=== PATIENT | male | born 1960 | race Caucasian/White ===

== ENCOUNTER 2018-07-26 13:24 | Emergency (ER) | payer SELFPAY ==
[2018-07-26 13:35] VITALS: BP 141/88; PULSE 63; RESP 16; TEMP 36.6; O2SAT 95
--- NOTE | 2018-07-26 13:50 | W.ED.GENAD ---
Discharge Plan Disposition Patient Disposition: HOME Condition: Improving Discharge Details Chief Complaint: Laceration Clinical Impression: Hand laceration Primary Care Provider: Unknown,Unknown ED Provider: Ana Cristina Hyman Home Meds and New Rx's Prescriptions: No Action No Known Home Meds RF: 0 Discharge Instructions Instructions: Laceration (ED) Additional Instructions: Keep wound clean, dry, covered. Keep current dressing on for the next 24 hours. After that please change daily and monitor for signs of infection. the infection may be noted with redness, warmth, drainage, increased pain, fever/chills. If these or other new/worsening symptoms arise please seek care urgently once again. Sutures may be removed in 10 days, you may return here or have medic at work remove these. Discharge Data Discharge Date/Time-TO BE ENTERED AT DEPARTURE: 07/26/18 15:00 Medical Decision Making Patient is a [id number] 58-year-old male presenting today with chief complaint of laceration to the left thenar eminence while at work. Patient reports that he slipped and cut himself with a weigh box tender. Patient suffered a 3 cm laceration over the thenar eminence. Wound is into the subcutaneous tissue. Muscle is visualized but does not appear to be violated. Ligamentously intact. Does not appear to have an deep enough to puncture the bone. Sensation is intact to two-point discrimination testing. Ligamentous intact on exam. Patient is up-to-date on tetanus, was last completed last fall. Patient has discussed risk and benefit as well as procedural steps of suture closure. Patient voiced understanding and wished to proceed. Procedure note: Using standard sterile technique, 1% lidocaine was used to infiltrate the area. 6 cc was used. The sufficiently anesthetized the wound. to wound was then copiously irrigated with sterile saline and explored to base in a bloodless field. No foreign body or debris was noted. No ligamentous or bony injury was noted. Using simple interrupted stitches, #6 sutures were placed with 5-0 nylon. Patient tolerated procedure well and a dry sterile bandage splint placed. Patient and I discussed wound care. Discussed sxs of infection and when to seek care urgently once again. Advised suture removal in 10 days, patient will be away with the at this time but can seek out medical professional there. Discussed activities to avoid. All of his questions and concerns were addressed, he is in agreement wiht this plan. HPI General Mode of arrival: ambulatory. Date/Time Provider Initiated Documentation: 07/26/18 13:25. Limitations to Documentation: no limitations. Information obtained by: patient and RN notes reviewed. History of Present Illness 58 year old M presents to the emergency department with the chief complaint of laceration left hand, described as mild, Quality is described as aching, and is localized to the left and upper extremity. Patient reports no radiation. Patient started experiencing this minute(s) and it has been constant. Immobilization improves symptom(s), Movement worsens symptoms . Patient notes denies chest pain, cough, fever/chills, nausea/vomiting, rash and weakness. Patient did receive the following treatments prior to arrival, none Related Data Home Medications Medication Instructions Recorded Confirmed Unknown [No Known Home Meds] 07/26/18 07/26/18 Allergies Allergy/AdvReac Type Severity Reaction Status Date / Time No Known Allergies Allergy Unverified 07/26/18 13:39 General Stated Complaint: Laceration MONIE: 4 Review of Systems Constitutional Reports as per HPI, Denies chills, Denies fever(s), Denies headache(s) and Denies weakness ENT Denies headache(s) Cardiovascular Reports as per HPI Respiratory Reports as per HPI and Denies cough Musculoskeletal Reports as per HPI and Denies tingling Integumentary/Breasts Reports as per HPI, Denies rash and Reports wounds (laceration to left hand) Neurologic Reports as per HPI, Denies headache(s), Denies tingling, Denies paresthesias and Denies weakness [facility] Social History Smoking/Tobacco Use Status: Never Alcohol Intake: never Drug use: Never Substance use type: does not use Do you feel safe at home: Yes Do you feel safe in your relationship?: Yes Exam Const General: cooperative, healthy appearing, comfortable, no acute distress, well developed and well groomed Nutritional Appearance: average body habitus and well nourished Orientation: alert and awake Resp Effort & Inspection: normal respiratory effort, able to speak in complete sentences and no respiratory distress Cardio Rate: regular rate Rhythm: regular rhythm Skin Trauma: laceration (3cm laceration into subQ left thenar emmenance) Neuro General: alert and awake Cognition: normal cognition Speech: speech normal Gait: normal gait Motor: muscle tone normal throughout Sensory Exam: no sensory deficits noted Extrem Left upper extremity: full ROM, normal capillary refill, no joint enlargement and hand Details: normal capillary refill, neuromotor exam normal, neurosensory exam normal, tendon exam normal, tenderness, normal ROM of fingers and laceration; no unusual warmth and no swelling; abnormal to inspection (laceration) and no edema Psych Appearance: grossly normal and well kempt Mental Status: mental status grossly normal Speech and Movement: speech and movement normal Course Vital Signs Temperature 36.6 C 07/26/18 13:35 Pulse 63 07/26/18 13:35 Respiratory Rate 16 07/26/18 13:35 Blood Pressure 141/88 H 07/26/18 13:35 Pulse Oximetry 95 07/26/18 13:35 Temperature 36.6 C 07/26/18 13:35 Temperature Source Temporal Artery Scan 07/26/18 13:35 Pulse 63 07/26/18 13:35 Respiratory Rate 16 07/26/18 13:35 Respiratory Effort Non-Labored 07/26/18 13:38 Blood Pressure 141/88 H 07/26/18 13:35 Blood Pressure Position Sitting 07/26/18 13:35 Pulse Oximetry 95 07/26/18 13:35 Oxygen Delivery Method Room Air 07/26/18 13:35 Oxygen Flow Rate 0 07/26/18 13:35 Pain Level 5 07/26/18 13:35
--- NOTE | 2018-07-26 14:54 | ED.GENADUL_ITS ---
Discharge Plan Disposition Patient Disposition: HOME Condition: Improving Discharge Details Chief Complaint: Laceration Clinical Impression: Hand laceration Primary Care Provider: Unknown,Unknown ED Provider: Ana Cristina Hyman Home Meds and New Rx's Prescriptions: No Action No Known Home Meds RF: 0 Discharge Instructions Instructions: Laceration (ED) Additional Instructions: Keep wound clean, dry, covered. Keep current dressing on for the next 24 hours. After that please change daily and monitor for signs of infection. the infection may be noted with redness, warmth, drainage, increased pain, fever/chills. If these or other new/worsening symptoms arise please seek care urgently once again. Sutures may be removed in 10 days, you may return here or have medic at work remove these. Discharge Data Discharge Date/Time-TO BE ENTERED AT DEPARTURE: 07/26/18 15:00 Medical Decision Making Patient is a [id number] 58-year-old male presenting today with chief complaint of laceration to the left thenar eminence while at work. Patient reports that he slipped and cut himself with a box shook patcher. Patient suffered a 3 cm laceration over the thenar eminence. Wound is into the subcutaneous tissue. Muscle is visualized but does not appear to be violated. Ligamentously intact. Does not appear to have an deep enough to puncture the bone. Sensation is intact to two-point discrimination testing. Ligamentous intact on exam. Patient is up-to-date on tetanus, was last completed last fall. Patient has discussed risk and benefit as well as procedural steps of suture closure. Patient voiced understanding and wished to proceed. Procedure note: Using standard sterile technique, 1% lidocaine was used to infiltrate the area. 6 cc was used. The sufficiently anesthetized the wound. to wound was then copiously irrigated with sterile saline and explored to base in a bloodless field. No foreign body or debris was noted. No ligamentous or bony injury was noted. Using simple interrupted stitches, #6 sutures were placed with 5-0 nylon. Patient tolerated procedure well and a dry sterile bandage splint placed. Patient and I discussed wound care. Discussed sxs of infection and when to seek care urgently once again. Advised suture removal in 10 days, patient will be away with the at this time but can seek out medical professional there. Discussed activities to avoid. All of his questions and concerns were addressed, he is in agreement wiht this plan. HPI General Mode of arrival: ambulatory . Date/Time Provider Initiated Documentation: 07/26/18 13:25 . Limitations to Documentation: no limitations . Information obtained by: patient and RN notes reviewed . History of Present Illness 58 year old M presents to the emergency department with the chief complaint of laceration left hand, described as mild, Quality is described as aching, and is localized to the left and upper extremity. Patient reports no radiation. Patient started experiencing this minute(s) and it has been constant. Immobilization improves symptom(s), Movement worsens symptoms . Patient notes denies chest pain, cough, fever/chills, nausea/vomiting, rash and weakness. Patient did receive the following treatments prior to arrival, none Related Data Home Medications Medication Instructions Recorded Confirmed Unknown [No Known Home Meds] 07/26/18 07/26/18 Allergies Allergy/AdvReac Type Severity Reaction Status Date / Time No Known Allergies Allergy Unverified 07/26/18 13:39 General Stated Complaint: Laceration MONIE: 4 Review of Systems Constitutional Reports as per HPI, Denies chills, Denies fever(s), Denies headache(s) and Denies weakness ENT Denies headache(s) Cardiovascular Reports as per HPI Respiratory Reports as per HPI and Denies cough Musculoskeletal Reports as per HPI and Denies tingling Integumentary/Breasts Reports as per HPI, Denies rash and Reports wounds (laceration to left hand) Neurologic Reports as per HPI, Denies headache(s), Denies tingling, Denies paresthesias and Denies weakness [facility] Social History Smoking/Tobacco Use Status: Never Alcohol Intake: never Drug use: Never Substance use type: does not use Do you feel safe at home: Yes Do you feel safe in your relationship?: Yes Exam Const General: cooperative, healthy appearing, comfortable, no acute distress, well developed and well groomed Nutritional Appearance: average body habitus and well nourished Orientation: alert and awake Resp Effort & Inspection: normal respiratory effort, able to speak in complete sentences and no respiratory distress Cardio Rate: regular rate Rhythm: regular rhythm Skin Trauma: laceration (3cm laceration into subQ left thenar emmenance) Neuro General: alert and awake Cognition: normal cognition Speech: speech normal Gait: normal gait Motor: muscle tone normal throughout Sensory Exam: no sensory deficits noted Extrem Left upper extremity: full ROM, normal capillary refill, no joint enlargement and hand Details: normal capillary refill, neuromotor exam normal, neurosensory exam normal, tendon exam normal, tenderness, normal ROM of fingers and laceration; no unusual warmth and no swelling; abnormal to inspection (laceration) and no edema Psych Appearance: grossly normal and well kempt Mental Status: mental status grossly normal Speech and Movement: speech and movement normal Course Vital Signs Temperature 36.6 C 07/26/18 13:35 Pulse 63 07/26/18 13:35 Respiratory Rate 16 07/26/18 13:35 Blood Pressure 141/88 H 07/26/18 13:35 Pulse Oximetry 95 07/26/18 13:35 Temperature 36.6 C 07/26/18 13:35 Temperature Source Temporal Artery Scan 07/26/18 13:35 Pulse 63 07/26/18 13:35 Respiratory Rate 16 07/26/18 13:35 Respiratory Effort Non-Labored 07/26/18 13:38 Blood Pressure 141/88 H 07/26/18 13:35 Blood Pressure Position Sitting 07/26/18 13:35 Pulse Oximetry 95 07/26/18 13:35 Oxygen Delivery Method Room Air 07/26/18 13:35 Oxygen Flow Rate 0 07/26/18 13:35 Pain Level 5 07/26/18 13:35
== END 2018-07-26 15:00 | disposition home or self-care (01) ==
LOC: ER 15:10
PROVIDERS: Emergency Provider Physician Assistant
DX: S61.412A Laceration without foreign body of left hand, initial encounter (principal); W26.8XXA Contact with other sharp object(s), not elsewhere classified, initial encounter
CPT/HCPCS: 12002

== ENCOUNTER 2021-04-19 10:11 | Emergency (ER) | payer BC, SELFPAY ==
[2021-04-19 10:20] VITALS: BP 136/80; PULSE 65; RESP 15; TEMP 36.3; O2SAT 95
--- NOTE | 2021-04-19 11:10 | DI.RAD_ITS ---
Exam(s) XR PORTABLE CHEST AP EXAM: XR PORTABLE CHEST AP CLINICAL HISTORY: cough TECHNIQUE: 2D digital imaging was performed. COMPARISON: No exams were available for comparison FINDINGS: LUNGS: Low lung volumes. Mild basilar atelectasis. Infiltrates cannot be excluded. No consolidatio n. No pleural abnormality seen. HEART: Normal. MEDIASTINUM: Normal. BONES: Unremarkable. IMPRESSION: Limited exam due to poor pulmonary inflation. Basilar infiltrates are not excluded. DATA REPOSITORY: RADIATION DOSE DELIVERED:
--- NOTE | 2021-04-19 11:58 | ED.GENADUL_ITS ---
Discharge Plan Disposition Patient Disposition: HOME Condition: Stable Discharge Details Clinical Impression: Pneumonia Primary Care Provider: Unknown,Unknown ED Provider: Leonard Santiago Home Meds and New Rx's Prescriptions: New doxycycline hyclate 100 mg capsule 100 mg PO BID Qty: 20 RF: 0 Discharge Instructions Instructions: Pneumonia (ED) Additional Instructions: Chest x-ray is concerning for pneumonia, please take doxycycline as directed. [id number] medications as directed for symptomatic control. Your COVID test is pending and should result in the next 2-3 days, I recommend quarantining until your test has resulted negative. Please watch for new or worsening symptoms and return to the ER for any concerns. Lastly, please contact your primary care provider later today or tomorrow to discuss your ER visit, ongoing symptoms, need for outpatient reevaluation and I strongly recommend getting vaccinated for COVID Medical Decision Making 61-year-old male, not a smoker, not vaccinated for COVID, presents with 3-week history of intermittent cough, congestion, fever that is no longer present. Clinically he appears well, nontoxic, lungs are clear to auscultation but diminished at the bases, O2 sat 95% on room air. He does not require any supplemental oxygen concern for COVID, will obtain a send out swab and obtain chest x-ray as well. I do not believe that any emergent laboratory values will change the overall disposition as he appears well Chest x-ray cannot exclude bibasilar infiltrates. COVID swab pending. Given the duration of his symptoms I do believe treating with antibiotics is reasonable given his unclear x-ray. Medical Records Medical records reviewed: Yes I reviewed the patient's medical records. Imaging Data Radiologic Study: Attestation: I personally reviewed and interpreted this imaging study as follows: Imaging: X-Ray Radiologist's impression: Exam(s) XR PORTABLE CHEST AP EXAM: XR PORTABLE CHEST AP CLINICAL HISTORY: cough TECHNIQUE: 2D digital imaging was performed. COMPARISON: No exams were available for comparison FINDINGS: LUNGS: Low lung volumes. Mild basilar atelectasis. Infiltrates cannot be excluded. No consolidation. No pleural abnormality seen. HEART: Normal. MEDIASTINUM: Normal. BONES: Unremarkable. IMPRESSION: Limited exam due to poor pulmonary inflation. Basilar infiltrates are not excluded. HPI General Mode of arrival: ambulatory . Date/Time Provider Initiated Documentation: 04/19/21 10:15 . Limitations to Documentation: no limitations . Information obtained by: patient . History of Present Illness 61 year old M presents to the emergency department with the chief complaint of Cough, described as mild, with intensity rated at 3. Quality is described as other (Congestion), and is localized to the chest. Patient reports no radiation. Patient started experiencing this week(s) (3) and it has been constant. No relieving factors improve symptom(s), No exacerbating factors reported . Patient notes cough and fever/chills (3 weeks ago); denies chest pain, headaches and nausea/vomiting. Patient did receive the following treatments prior to arrival, none Related Data Home Medications Medication Instructions Recorded Confirmed doxycycline hyclate 100 mg PO BID #20 cap 04/19/21 Previous Rx's Medication Instructions Recorded doxycycline hyclate 100 mg PO BID #20 cap 04/19/21 Allergies Allergy/AdvReac Type Severity Reaction Status Date / Time No Known Allergies Allergy Unverified 04/19/21 10:25 General Stated Complaint: RespSymp MONIE: 3 Review of Systems Constitutional Constitutional: Reports fever(s) and Denies headache(s) ENT Ears, Nose, Mouth, and Throat: Denies headache(s) and Denies neck pain Cardiovascular Cardiovascular: Denies chest pain and Denies dyspnea Respiratory Respiratory: Reports cough and Denies dyspnea Gastrointestinal Gastrointestinal: Denies abdominal pain, Denies nausea and Denies vomiting Musculoskeletal Musculoskeletal: Denies myalgias and Denies neck pain Integumentary/Breasts Skin/Breast: Denies rash Neurologic Neurologic: Denies headache(s) PFSH All Active Problems (Updated 04/19/21 @ 12:04 by SAUL Daly) Pneumonia (Acute) Social History Smoking/Tobacco Use Status: Never Smoking risk assessment performed?: Yes Alcohol Intake: never Drug use: Never Substance use type: does not use Do you feel safe at home: Yes Do you feel safe in your relationship?: Yes Exam Const General: cooperative, healthy appearing, comfortable and no acute distress Orientation: alert, awake and oriented x3 HENMT Head: normal to inspection, normocephalic and atraumatic Throat: posterior oropharynx normal Eyes General: appearance normal, both eyes and all related structures Conjunctivae: conjunctivae normal Neck Neck: normal visual inspection, full ROM, no lymphadenopathy, no meningeal signs, trachea midline, supple and nontender Resp Effort & Inspection: normal respiratory effort and able to speak in complete sentences Auscultation: diminished lung sounds bilaterally in the lower lung miles Cardio Rate: regular rate Rhythm: regular rhythm GI Palpation: soft and nontender Skin General skin exam: no rashes or lesions noted Neuro General: patient alert, patient awake, moves all extremities and no focal motor deficits Sensory Exam: no sensory deficits noted Psych Appearance: grossly normal Mental Status: mental status grossly normal Course Vital Signs Vital signs: Vital Signs Temperature 36.3 C L 04/19/21 10:20 Pulse 65 04/19/21 10:20 Respiratory Rate 15 04/19/21 10:20 Blood Pressure 136/80 04/19/21 10:20 Pulse Oximetry 95 04/19/21 10:20 Temperature 36.3 C L 04/19/21 10:20 Temperature Source Temporal Artery Scan 04/19/21 10:20 Pulse 65 04/19/21 10:20 Respiratory Rate 15 04/19/21 10:20 Respiratory Effort Non-Labored 04/19/21 10:25 Respiratory Depth Normal 04/19/21 10:25 Blood Pressure 136/80 04/19/21 10:20 Pulse Oximetry 95 04/19/21 10:20 Oxygen Delivery Method Room Air 04/19/21 10:20 Oxygen Flow Rate 0 04/19/21 10:20 Pain Level 0 04/19/21 10:20
[2021-04-19 12:24] VITALS: BP 136/80; PULSE 70; RESP 16; TEMP 36.3; O2SAT 96
[2021-04-20 14:55] LABS: COVID-19 RT-PCR UVMMC Result Positive (Negative)
--- NOTE | 2021-04-20 15:58 | W.ED.FU ---
I called and notified patient of covid positive result. I reviewed CDC isolation guidance with the patient and encouraged him to return immediately for any worsening or new concerning symptoms. I also recommended he follow-up with his PCP.
== END 2021-04-19 12:23 | disposition home or self-care (01) ==
PROVIDERS: Emergency Provider Physician Assistant
DX: U07.1 COVID-19 (principal); J12.82 Pneumonia due to coronavirus disease 2019
CPT/HCPCS: 99284; U0003; 71045; 99283